=== PATIENT | female | born 1985 | race Two or more races ===

== ENCOUNTER → 2017-05-18 | Outpatient (CLI) | payer BC, MEDICAID ==
[2017-05-18 11:50] LABS: ABSOLUTE EOSINOPHILS # (AUTO) 0.2 10^3/uL (0.0-0.6); ABSOLUTE LYMPHOCYTES (AUTO) 1.6 10^3/uL (0.5-4.7); ABSOLUTE MONOCYTES (AUTO) 0.3 10^3/uL (0.1-1.4); ABSOLUTE NEUT (AUTO) 2.5 10^3/uL (1.7-8.2); BASOPHILS % (AUTO) 0.6 % (0-2); EOSINOPHILS % (AUTO) 3.6 % (0-6); HEMOGLOBIN 12.6 g/dL (12.0-15.5); HGB HCT DIFFERENCE -0.2; MEAN CORPUSCULAR HEMOGLOBIN 26.3 pg (27.0-33.4); MEAN CORPUSCULAR HGB CONC 33.2 g/dL (32.0-36.0); MEAN CORPUSCULAR VOLUME 79 fl (80-97); RED BLOOD COUNT 4.78 10^6/uL (3.72-5.28); RED CELL DISTRIBUTION WIDTH 13.9 % (11.5-14.0); SEGMENTED NEUTROPHILS % (AUTO) 53.8 % (42-78); WHITE BLOOD COUNT 4.7 10^3/uL (4.0-10.5)
[2017-05-18 12:18] LABS: ALANINE AMINOTRANSFERASE 29 U/L (9-52); ALBUMIN 4.6 g/dL (3.5-5.0); ALKALINE PHOSPHATASE 73 U/L (38-126); ANION GAP 14 (5-19); ASPARTATE AMINO TRANSFERASE 17 U/L (14-36); BILIRUBIN,DIRECT 0.3 mg/dL (0.0-0.4); BILIRUBIN,TOTAL 0.5 mg/dL (0.2-1.3); BLOOD UREA NITROGEN 12 mg/dL (7-20); CALCIUM 9.5 mg/dL (8.4-10.2); CARBON DIOXIDE 27 mmol/L (22-30); CHLORIDE 103 mmol/L (98-107); CREATININE RESULT 0.67 mg/dL (0.52-1.25); GLUCOSE 89 mg/dL (75-110); MAGNESIUM 1.7 mg/dL (1.6-2.3); POTASSIUM 4.3 mmol/L (3.6-5.0); SODIUM 143.6 mmol/L (137-145); TOTAL PROTEIN 7.1 g/dL (6.3-8.2)
[2017-05-18 12:47] LABS: FERRITIN 9.46 ng/mL (6.2-137.0)
== END ==
LOC: LAB 11:29
PROVIDERS: ATTEND Nurse Practitioner
DX: R00.2 Palpitations (principal); R53.83 Other fatigue; D50.8 Other iron deficiency anemias
CPT/HCPCS: 36415; 80053; 82607; 82728; 83540; 83550; 83735; 84443; 85025; 86376

== ENCOUNTER → 2018-03-04 | Outpatient (CLI) | payer BC ==
[2018-03-04 12:41] LABS: ABSOLUTE EOSINOPHILS # (AUTO) 0.1 10^3/uL (0.0-0.6); ABSOLUTE LYMPHOCYTES (AUTO) 1.4 10^3/uL (0.5-4.7); ABSOLUTE MONOCYTES (AUTO) 0.5 10^3/uL (0.1-1.4); ABSOLUTE NEUT (AUTO) 7.1 10^3/uL (1.7-8.2); BASOPHILS % (AUTO) 0.4 % (0-2); HEMATOCRIT 35.2 % (36.0-47.0); HEMOGLOBIN 11.7 g/dL (12.0-15.5); LYMPHOCYTES % (AUTO) 15.3 % (13-45); MEAN CORPUSCULAR HGB CONC 33.4 g/dL (32.0-36.0); MEAN CORPUSCULAR VOLUME 78 fl (80-97); MONOCYTES % (AUTO) 5.7 % (3-13); PLATELET COUNT 272 10^3/uL (150-450); RED BLOOD COUNT 4.52 10^6/uL (3.72-5.28); RED CELL DISTRIBUTION WIDTH 16.2 % (11.5-14.0); SEGMENTED NEUTROPHILS % (AUTO) 77.6 % (42-78); TOTAL CELLS COUNTED % (AUTO) 100 %; WHITE BLOOD COUNT 9.2 10^3/uL (4.0-10.5)
[2018-03-04 13:08] LABS: ALANINE AMINOTRANSFERASE 18 U/L (9-52); ALBUMIN 4.1 g/dL (3.5-5.0); ALKALINE PHOSPHATASE 49 U/L (38-126); ANION GAP 12 (5-19); ASPARTATE AMINO TRANSFERASE 16 U/L (14-36); BILIRUBIN,DIRECT 0.2 mg/dL (0.0-0.4); BILIRUBIN,TOTAL 0.3 mg/dL (0.2-1.3); BLOOD UREA NITROGEN 8 mg/dL (7-20); CALCIUM 9.5 mg/dL (8.4-10.2); CARBON DIOXIDE 24 mmol/L (22-30); CHLORIDE 102 mmol/L (98-107); GLUCOSE 93 mg/dL (75-110); POTASSIUM 4.1 mmol/L (3.6-5.0); SODIUM 137.8 mmol/L (137-145); URIC ACID 3.1 mg/dL (2.5-6.2)
[2018-03-04 14:04] LABS: RUBELLA INTERPRETATION POSITIVE
[2018-03-05 10:38] LABS: HEPATITIS C VIRUS AB <0.1 s/co ratio (0.0-0.9)
[2018-03-05 14:58] LABS: HEPATITS B SURFACE ANTIGEN Negative (Negative)
[2018-03-05 15:39] LABS: HGB A 97.4 % (96.4-98.8); HGB A2 2.6 % (1.8-3.2); HGB SOLUBILITY RESULT Negative (Negative)
== END ==
LOC: LAB 11:57
PROVIDERS: ATTEND Obstetrics & Gynecology
DX: O13.9 Gestational [pregnancy-induced] hypertension without significant proteinuria, unspecified trimester (principal); Z11.3 Encounter for screening for infections with a predominantly sexual mode of transmission; Z13.29 Encounter for screening for other suspected endocrine disorder
CPT/HCPCS: 36415; 80053; 83020; 83615; 84439; 84443; 84550; 85025; 86592; 86701; 86762; 86803; 86804; 86850; 86900; 86901; 87340

== ENCOUNTER → 2018-05-23 | Outpatient (CLI) | payer BC ==
[2018-05-23 22:06] LABS: ANION GAP 12 (5-19); ASPARTATE AMINO TRANSFERASE 16 U/L (14-36); BLOOD UREA NITROGEN 9 mg/dL (7-20); CALCIUM 9.9 mg/dL (8.4-10.2); CARBON DIOXIDE 26 mmol/L (22-30); CHLORIDE 101 mmol/L (98-107); GLUCOSE 90 mg/dL (75-110); POTASSIUM 4.5 mmol/L (3.6-5.0); SODIUM 139.3 mmol/L (137-145); URIC ACID 3.2 mg/dL (2.5-6.2)
[2018-05-24 21:39] LABS: 24 HOUR URINE PROTEIN RESULT 139 mg/day (42-225); URINE PROTEIN 9.8 mg/dL (<12)
[2018-05-27 12:18] LABS: URINE CREATININE 1.4 mg/dL (16-327)
[2018-05-27 12:22] LABS: CREATININE 0.56 mg/dL (0.52-1.25)
== END ==
LOC: LAB 09:35
PROVIDERS: ATTEND Obstetrics & Gynecology
DX: Z34.81 Encounter for supervision of other normal pregnancy, first trimester (principal)
CPT/HCPCS: 36415; 80048; 82570; 82575; 83036; 84156; 84450; 84550; 87086

== ENCOUNTER 2018-06-28 16:30 | Outpatient (CLI) | payer BC ==
[2018-06-28 17:15] LABS: AMORPHOUS SEDIMENT,URINE TRACE /HPF; APPEARANCE,URINE SLIGHTLY-CLOUDY; BILIRUBIN,URINE NEGATIVE (NEGATIVE); COLOR,URINE YELLOW; GLUCOSE, URINE NEGATIVE (NEGATIVE); KETONES,URINE NEGATIVE (NEGATIVE); LEUKOCYTE ESTERASE,URINE NEGATIVE (NEGATIVE); NITRITE,URINE NEGATIVE (NEGATIVE); PROTEIN,URINE NEGATIVE (NEGATIVE); URINE SPECIFIC GRAVITY 1.018; UROBILINOGEN,URINE NEGATIVE mg/dL (<2.0)
[2018-06-28 17:43] LABS: URINE AMPHETAMINES SCREEN NEGATIVE; URINE BARBITURATES SCREEN NEGATIVE; URINE BENZODIAZEPINES SCREEN NEGATIVE; URINE COCAINE SCREEN NEGATIVE; URINE MARIJUANA (THC) SCREEN NEGATIVE; URINE METHADONE SCREEN NEGATIVE; URINE PHENCYCLIDINE SCREEN NEGATIVE
== END 2018-06-28 17:15 | disposition home or self-care (01) ==
LOC: LC 16:30
PROVIDERS: ATTEND Obstetrics & Gynecology
PROC: 4A1HXCZ Monitoring of Products of Conception, Cardiac Rate, External Approach (ICD-10-PCS; principal; 2018-06-28)
DX: O16.2 Unspecified maternal hypertension, second trimester (principal); Z3A.24 24 weeks gestation of pregnancy
CPT/HCPCS: 80307; 81001

== ENCOUNTER → 2018-07-22 | Outpatient (CLI) | payer BC | LOC: LAB 20:57 | PROVIDERS: ATTEND Obstetrics & Gynecology | DX: O16.9 Unspecified maternal hypertension, unspecified trimester (principal) ==

== ENCOUNTER 2018-08-14 10:23 | Outpatient (CLI) | payer BC ==
[2018-08-14 11:14] LABS: APPEARANCE,URINE SLIGHTLY-CLOUDY; BILIRUBIN,URINE NEGATIVE (NEGATIVE); COLOR,URINE YELLOW; GLUCOSE, URINE NEGATIVE (NEGATIVE); KETONES,URINE NEGATIVE (NEGATIVE); LEUKOCYTE ESTERASE,URINE NEGATIVE (NEGATIVE); NITRITE,URINE NEGATIVE (NEGATIVE); PROTEIN,URINE NEGATIVE (NEGATIVE); URINE SPECIFIC GRAVITY 1.016; UROBILINOGEN,URINE NEGATIVE mg/dL (<2.0)
[2018-08-14 11:17] LABS: HEMATOCRIT 32.8 % (36.0-47.0); HEMOGLOBIN 10.9 g/dL (12.0-15.5); MEAN CORPUSCULAR HGB CONC 33.2 g/dL (32.0-36.0); MEAN CORPUSCULAR VOLUME 78 fl (80-97); PLATELET COUNT 201 10^3/uL (150-450); RED CELL DISTRIBUTION WIDTH 13.4 % (11.5-14.0)
[2018-08-14 11:30] LABS: ALANINE AMINOTRANSFERASE 24 U/L (9-52); ALBUMIN 3.4 g/dL (3.5-5.0); ALKALINE PHOSPHATASE 114 U/L (38-126); ANION GAP 6 (5-19); ASPARTATE AMINO TRANSFERASE 19 U/L (14-36); BILIRUBIN,DIRECT 0.2 mg/dL (0.0-0.4); BILIRUBIN,TOTAL 0.3 mg/dL (0.2-1.3); BLOOD UREA NITROGEN 10 mg/dL (7-20); CALCIUM 8.8 mg/dL (8.4-10.2); CARBON DIOXIDE 25 mmol/L (22-30); CHLORIDE 106 mmol/L (98-107); GLUCOSE 92 mg/dL (75-110); POTASSIUM 4.1 mmol/L (3.6-5.0); SODIUM 136.8 mmol/L (137-145); TOTAL PROTEIN 5.9 g/dL (6.3-8.2); URIC ACID 4.5 mg/dL (2.5-6.2)
[2018-08-14 11:32] LABS: UR PRO/CREAT RATIO RESULT 0.1 mg/mg (0.0-0.2); URINE CREATININE 96.7 mg/dL (16-327)
[2018-08-14 12:52] LABS: URINE AMPHETAMINES SCREEN NEGATIVE; URINE BARBITURATES SCREEN NEGATIVE; URINE BENZODIAZEPINES SCREEN NEGATIVE; URINE COCAINE SCREEN NEGATIVE; URINE MARIJUANA (THC) SCREEN NEGATIVE; URINE METHADONE SCREEN NEGATIVE; URINE PHENCYCLIDINE SCREEN NEGATIVE
== END 2018-08-14 12:00 | disposition home or self-care (01) ==
LOC: LC 10:23
PROVIDERS: ATTEND Obstetrics & Gynecology
PROC: 4A1HXCZ Monitoring of Products of Conception, Cardiac Rate, External Approach (ICD-10-PCS; principal; 2018-08-14)
DX: O10.913 Unspecified pre-existing hypertension complicating pregnancy, third trimester (principal); Z3A.31 31 weeks gestation of pregnancy
CPT/HCPCS: 36415; 80053; 80307; 81001; 82570; 83615; 84156; 84550; 85027

== ENCOUNTER 2018-08-21 12:14 | Observation (INO) | payer BC ==
[2018-08-21 12:48] LABS: APPEARANCE,URINE SLIGHTLY-CLOUDY; BILIRUBIN,URINE NEGATIVE (NEGATIVE); COLOR,URINE YELLOW; GLUCOSE, URINE NEGATIVE (NEGATIVE); KETONES,URINE NEGATIVE (NEGATIVE); LEUKOCYTE ESTERASE,URINE SMALL (NEGATIVE); NITRITE,URINE NEGATIVE (NEGATIVE); PROTEIN,URINE NEGATIVE (NEGATIVE); URINE SPECIFIC GRAVITY 1.017; UROBILINOGEN,URINE NEGATIVE mg/dL (<2.0)
[2018-08-21 13:04] LABS: URINE AMPHETAMINES SCREEN NEGATIVE; URINE BARBITURATES SCREEN NEGATIVE; URINE BENZODIAZEPINES SCREEN NEGATIVE; URINE COCAINE SCREEN NEGATIVE; URINE MARIJUANA (THC) SCREEN NEGATIVE; URINE METHADONE SCREEN NEGATIVE; URINE PHENCYCLIDINE SCREEN NEGATIVE
[2018-08-21 13:09] LABS: UR PRO/CREAT RATIO RESULT 0.1 mg/mg (0.0-0.2); URINE CREATININE 120.5 mg/dL (16-327); URINE PROTEIN 7.5 mg/dL (<12)
--- NOTE | 2018-08-21 13:22 | PDOC H&P ---
General Chief Complaint: 32yo at 32w4d with CHTN and severe range bps while at [facility]. Denies any s/s of super imposed pre-e except for swelling after working 12hr shifts that resolves with rest and headaches a couple of weeks ago but none now. Pt. had stopped taking procardia because she reports they were causing migraines but when blood pressures became severe, she agreed to start labetalol which she is now taking every 12hrs. Pt. was sent from [facility] office today for PIH labs, serial bps and in house 24hr urine to rule out super imposed pre-e. Reports +FM and no other concerns today. - Diagnosis (1) Is this a Current Diagnosis?: Yes (2) Chronic hypertension affecting Is this a Current Diagnosis?: Yes - Current Medications/Allergies Home Medications: Vit Calc,Iron,Folic [ Vitamins] 1 tab PO DAILY 12/31/15 Calcium Carbonate [Calcium] 1 tab PO QHS 08/14/18 Labetalol HCl 200 mg PO BID 08/21/18 Allergies/Adverse Reactions: No Known Allergies Allergy (Verified 08/14/18 10:31) Past Medical History Past Medical History: medical hx significant for CHTN,Leep in 2005 and three vaginal deliveries Endocrine Medical History: Reports: Other - Hx of GDM Past Surgical History Past Surgical History: Reports: Other - leep Family History Family History: Reviewed & Not Pertinent Parental Family History Reviewed: Yes Children Family History Reviewed: Yes Sibling(s) Family History Reviewed.: Yes Social History Smoking Status: Never Smoker Physical Exam Vital Signs: Intake & Output 08/20/18 08/21/18 08/22/18 06:59 06:59 06:59 Weight 83.2 kg General appearance: PRESENT: no acute distress, cooperative Respiratory exam: PRESENT: clear to auscultation angie. ABSENT: rales, rhonchi, wheezes Cardiovascular exam: PRESENT: RRR. ABSENT: diastolic murmur, rubs, systolic murmur Extremities exam: PRESENT: +1 edema - bilateral lower extremity none noticed on upper extremities. Neurological exam: PRESENT: oriented to person, oriented to place, oriented to time Psychiatric exam: PRESENT: normal mood Impression/Plan Impression: IUP @ 32w4d with CHTN Plan: will obtain PIH labs and serial bps and as long as bps are not severe, will transfer to to complete 24h urine. consider betamethasone if severe bps per Dr. Pelayo and discussed with Dr. Feliz who is agreeable with poc. Pt understands plan of care, asked questions and verbalized understanding.
--- NOTE | 2018-08-21 13:25 | Non Stress Test Report ---
Non Stress Test Datetime Report Generated by CPN: 08/21/2018 13:25 DEMOGRAPHIC EGA NST: 32.4 INDICATION Indication for Study: Chronic Hypertension; Ordered by Provider MONITORING Monitor Explained: Monitor Explained; Test Explained; Patient Verbalized Understanding Time on Monitor: 08/21/2018 12:26 Time off Monitor: 08/21/2018 13:21 NST Duration: 55 NST INTERVENTIONS NST Interventions: PO Hydration Physician Notified NST: C. Freed, CNM BABY A: [id number] BABY A Movement : Present Contraction Frequency : 0 FHR Baseline : 125 Accelerations : 15X15 Decelerations : None Variability : Moderate 6-25bpm NST Review: Meets Criteria for Reactive NST NST Review and Verified By : REMI Patel Results: Reactive NST REPORT Report Trigger: Send Report
[2018-08-21 13:29] LABS: ABSOLUTE EOSINOPHILS # (AUTO) 0.1 10^3/uL (0.0-0.6); ABSOLUTE LYMPHOCYTES (AUTO) 1.1 10^3/uL (0.5-4.7); ABSOLUTE MONOCYTES (AUTO) 0.6 10^3/uL (0.1-1.4); BASOPHILS % (AUTO) 0.5 % (0-2); EOSINOPHILS % (AUTO) 1.4 % (0-6); HEMATOCRIT 31.1 % (36.0-47.0); HEMOGLOBIN 10.3 g/dL (12.0-15.5); LYMPHOCYTES % (AUTO) 11.9 % (13-45); MEAN CORPUSCULAR HEMOGLOBIN 25.7 pg (27.0-33.4); MEAN CORPUSCULAR HGB CONC 33.1 g/dL (32.0-36.0); MEAN CORPUSCULAR VOLUME 78 fl (80-97); MONOCYTES % (AUTO) 7.1 % (3-13); PLATELET COUNT 200 10^3/uL (150-450); RED BLOOD COUNT 4.01 10^6/uL (3.72-5.28); SEGMENTED NEUTROPHILS % (AUTO) 79.1 % (42-78); TOTAL CELLS COUNTED % (AUTO) 100 %; WHITE BLOOD COUNT 8.9 10^3/uL (4.0-10.5)
[2018-08-21 13:48] LABS: ALANINE AMINOTRANSFERASE 21 U/L (9-52); ALBUMIN 3.3 g/dL (3.5-5.0); ALKALINE PHOSPHATASE 121 U/L (38-126); ANION GAP 6 (5-19); ASPARTATE AMINO TRANSFERASE 27 U/L (14-36); BILIRUBIN,DIRECT 0.2 mg/dL (0.0-0.4); BILIRUBIN,TOTAL 0.3 mg/dL (0.2-1.3); BLOOD UREA NITROGEN 10 mg/dL (7-20); CALCIUM 8.9 mg/dL (8.4-10.2); CARBON DIOXIDE 25 mmol/L (22-30); CHLORIDE 106 mmol/L (98-107); GLUCOSE 92 mg/dL (75-110); POTASSIUM 4.2 mmol/L (3.6-5.0); SODIUM 136.6 mmol/L (137-145); TOTAL PROTEIN 5.8 g/dL (6.3-8.2); URIC ACID 4.9 mg/dL (2.5-6.2)
[2018-08-21] MEDS: LABETALOL HCL 200 MG TABLET PO SCH ×2 (17:50→21:44)
[2018-08-22] MEDS: LABETALOL HCL 200 MG TABLET PO SCH (09:48)
[2018-08-22] MEDS ORDERED: PRENATAL VITAMIN W DHA CAPSULE PO SCH (10:00)
[2018-08-22 13:11] LABS: 24 HOUR URINE PROTEIN RESULT 348 mg/day (42-225); URINE PROTEIN 12.5 mg/dL (<12)
[2018-08-22 15:32] VITALS: BP 124/71
--- NOTE | 2018-08-22 16:37 | PDOC DISCHARGE SUMMARY ---
Final Diagnosis Discharge Date: 08/22/18 - Final Diagnosis (1) Chronic hypertension affecting Is this a current diagnosis for this admission?: Yes (2) Is this a current diagnosis for this admission?: Yes (3) Gestational hypertension Is this a current diagnosis for this admission?: Yes Discharge Data - Discharge Medication Home Medications: Vit Calc,Iron,Folic [ Vitamins] 1 tab PO DAILY 12/31/15 Calcium Carbonate [Calcium] 1 tab PO QHS 08/14/18 Labetalol HCl 200 mg PO BID 08/21/18 Gestational Age: 34.2 Reason(s) for Admission: PIH Procedures: NST, Ultrasound - Diagnosis Test Laboratory: Temp Pulse Resp BP Pulse Ox 98.2 F 71 16 124/71 99 08/22/18 15:31 08/22/18 15:31 08/22/18 15:31 08/22/18 15:31 08/22/18 15:31 08/21/18 08/21/18 12:18 13:07 RBC 4.01 Hgb 10.3 L Hct 31.1 L Urine Opiates Screen NEGATIVE - Discharge information/Instructions Discharge Activity: Activity As Tolerated Discharge Diet: As Tolerated, Regular Disposition: HOME, SELF-CARE Follow up with: [facility] in: 4, Days - rtc Sunday
--- NOTE | 2018-08-22 16:45 | PDOC PROGRESS REPORT ---
Subjective-OB Progress Note for:: 08/22/18 Subjective: pt ready to go home, Pos FM, no S&S of preeclampsia Physical Exam (OB) Vital Signs: Temp Pulse Resp BP Pulse Ox 98.2 F 71 16 124/71 99 08/22/18 15:31 08/22/18 15:31 08/22/18 15:31 08/22/18 15:31 08/22/18 15:31 Intake & Output 08/21/18 08/22/18 08/23/18 06:59 06:59 06:59 Intake Total 300 Balance 300 Weight 84.4 kg - Abdomen Hernia Present: No Objective-Diagnostic Laboratory: 08/21/18 13:07 08/21/18 13:07 08/22/18 12:30 Ur 24 Hour Volume 2780 Ur Total Protein 24 Hr 348 H Assessment and Plan(PN) - Assessment and Plan (1) Chronic hypertension affecting Is this a current diagnosis for this admission?: Yes (2) Qualifiers: Weeks of gestation: 34 weeks Qualified Code(s): Z3A.34 - 34 weeks gestation of Is this a current diagnosis for this admission?: Yes (3) Gestational hypertension Qualifiers: Trimester: third trimester Qualified Code(s): O13.3 - Gestational [-induced] hypertension without significant proteinuria, third trimester Is this a current diagnosis for this admission?: Yes - Time Spent with Patient Time with patient: Less than 15 minutes Medications reviewed and adjusted accordingly: Yes - Disposition Anticipated Discharge: Home - discharged undelivered, 34.3, pos fm, reviewed S&S to report, will see patient on Sunday, vs stable, 24 hour protein 348
== END 2018-08-22 17:24 | disposition home or self-care (01) ==
LOC: LC 12:14 → LR 12:36 → 2N 17:40
PROVIDERS: ADMIT Obstetrics & Gynecology; ATTEND Obstetrics & Gynecology
PROC: 4A0HXCZ Measurement of Products of Conception, Cardiac Rate, External Approach (ICD-10-PCS; principal; 2018-08-21)
PROC: 4A0HXCZ Measurement of Products of Conception, Cardiac Rate, External Approach (ICD-10-PCS; 2018-08-22)
DX: O13.3 Gestational [pregnancy-induced] hypertension without significant proteinuria, third trimester (principal); Z86.32 Personal history of gestational diabetes; Z3A.34 34 weeks gestation of pregnancy
CPT/HCPCS: 59025 ×2; 36415; 83615; 84156 ×2; 84550; 82570; 85025; 80053; 81001; 80307; J3490

== ENCOUNTER 2018-08-29 11:51 | Outpatient (CLI) | payer BC ==
[2018-08-29 12:48] LABS: HEMATOCRIT 33.4 % (36.0-47.0); HEMOGLOBIN 11.1 g/dL (12.0-15.5); MEAN CORPUSCULAR HEMOGLOBIN 25.5 pg (27.0-33.4); MEAN CORPUSCULAR HGB CONC 33.3 g/dL (32.0-36.0); MEAN CORPUSCULAR VOLUME 77 fl (80-97); PLATELET COUNT 200 10^3/uL (150-450); RED BLOOD COUNT 4.36 10^6/uL (3.72-5.28); RED CELL DISTRIBUTION WIDTH 14.4 % (11.5-14.0); WHITE BLOOD COUNT 10.5 10^3/uL (4.0-10.5)
[2018-08-29 12:58] LABS: APPEARANCE,URINE SLIGHTLY-CLOUDY; BILIRUBIN,URINE NEGATIVE (NEGATIVE); COLOR,URINE STRAW; GLUCOSE, URINE NEGATIVE (NEGATIVE); KETONES,URINE NEGATIVE (NEGATIVE); LEUKOCYTE ESTERASE,URINE MODERATE (NEGATIVE); NITRITE,URINE NEGATIVE (NEGATIVE); PROTEIN,URINE NEGATIVE (NEGATIVE); URINE SPECIFIC GRAVITY 1.004; UROBILINOGEN,URINE NEGATIVE mg/dL (<2.0)
[2018-08-29 13:04] LABS: ALANINE AMINOTRANSFERASE 21 U/L (9-52); ALBUMIN 3.7 g/dL (3.5-5.0); ALKALINE PHOSPHATASE 139 U/L (38-126); ANION GAP 7 (5-19); ASPARTATE AMINO TRANSFERASE 23 U/L (14-36); BILIRUBIN,DIRECT 0.2 mg/dL (0.0-0.4); BILIRUBIN,TOTAL 0.3 mg/dL (0.2-1.3); BLOOD UREA NITROGEN 12 mg/dL (7-20); CALCIUM 9.2 mg/dL (8.4-10.2); CARBON DIOXIDE 22 mmol/L (22-30); CHLORIDE 107 mmol/L (98-107); GLUCOSE 77 mg/dL (75-110); POTASSIUM 4.3 mmol/L (3.6-5.0); TOTAL PROTEIN 6.4 g/dL (6.3-8.2); URIC ACID 5.8 mg/dL (2.5-6.2)
[2018-08-29 13:09] LABS: URINE AMPHETAMINES SCREEN NEGATIVE; URINE BARBITURATES SCREEN NEGATIVE; URINE BENZODIAZEPINES SCREEN NEGATIVE; URINE COCAINE SCREEN NEGATIVE; URINE MARIJUANA (THC) SCREEN NEGATIVE; URINE METHADONE SCREEN NEGATIVE; URINE PHENCYCLIDINE SCREEN NEGATIVE
[2018-08-29 13:11] LABS: UR PRO/CREAT RATIO RESULT 0.7 mg/mg (0.0-0.2); URINE CREATININE 25.6 mg/dL (16-327); URINE PROTEIN 16.8 mg/dL (<12)
[2018-08-29] MEDS ORDERED: NIFEDIPINE 10 MG CAPSULE ONE (13:27)
[2018-08-29] MEDS ORDERED: NIFEDIPINE 10 MG CAPSULE PO ONE (13:28)
--- NOTE | 2018-08-29 13:40 | L&D Progress Notes ---
PROGRESS NOTES Datetime Report Generated by CPN: 08/29/2018 13:40 PROGRESS NOTE Impression Other: Gestational HTN Procedures- Other: monitoring Vital Signs : Reviewed; Within Normal Limits Comment: Pt here today c/o elevated BP. She is currently taking Labetalol 200 mg BID and her BPs are still extremely elevated. She is asymptomatic and her PIH workup is negative. She is no longer working and is on modified bedrest. She was given Procardia 10 mg to bridge her until she takes her Labetalol tonight. I increased her dose to 300 mg BID. She will call me with her BP log on Sunday. She will also see MFM on Sunday. FETUS A FHR - Baseline: 120s Monitoring: External US Accelerations: 15X15 Decelerations: None FHR Category: Category I : 33.5 SIGNATURE SIGNATURE: [id number] SIGNATURE: [id number] Signature: with User ID: [email or web address]
--- NOTE | 2018-08-29 14:03 | Non Stress Test Report ---
Non Stress Test Datetime Report Generated by CPN: 08/29/2018 14:02 DEMOGRAPHIC EGA NST: 33.5 INDICATION Indication for Study: Chronic Hypertension; Ordered by Provider MONITORING Monitor Explained: Monitor Explained; Test Explained; Patient Verbalized Understanding Time on Monitor: 08/29/2018 12:08 Time off Monitor: 08/29/2018 13:31 NST Duration: 83 NST INTERVENTIONS NST Interventions: PO Hydration; Reposition Patient Physician Notified NST: NDipesh Torres, CNM BABY A: [id number] BABY A Movement : Present Contraction Frequency : 0 FHR Baseline : 130 Accelerations : 15X15 Decelerations : None Variability : Moderate 6-25bpm NST Review: Meets Criteria for Reactive NST NST Review and Verified By : Charisma Moyer RN NST Results: Reactive NST REPORT Report Trigger: Send Report
== END 2018-08-29 13:55 | disposition home or self-care (01) ==
LOC: LC 11:51
PROVIDERS: ATTEND Obstetrics & Gynecology
PROC: 4A1HXCZ Monitoring of Products of Conception, Cardiac Rate, External Approach (ICD-10-PCS; principal; 2018-08-29)
DX: O13.3 Gestational [pregnancy-induced] hypertension without significant proteinuria, third trimester (principal); Z3A.33 33 weeks gestation of pregnancy
CPT/HCPCS: 59025; 36415; 84156; 84550; 82570; 85027; 86592; 80053; 81001; 86701; 80307; J3490

== ENCOUNTER → 2019-07-26 | Outpatient (CLI) | payer BC ==
[2019-07-26 23:34] LABS: ABSOLUTE EOSINOPHILS # (AUTO) 0.2 10^3/uL (0.0-0.6); ABSOLUTE LYMPHOCYTES (AUTO) 1.9 10^3/uL (0.5-4.7); ABSOLUTE MONOCYTES (AUTO) 0.5 10^3/uL (0.1-1.4); ABSOLUTE NEUT (AUTO) 4.6 10^3/uL (1.7-8.2); BASOPHILS % (AUTO) 0.5 % (0-2); EOSINOPHILS % (AUTO) 2.4 % (0-6); HEMATOCRIT 37.9 % (36.0-47.0); HEMOGLOBIN 12.5 g/dL (12.0-15.5); LYMPHOCYTES % (AUTO) 26.6 % (13-45); MEAN CORPUSCULAR HEMOGLOBIN 26.2 pg (27.0-33.4); MEAN CORPUSCULAR VOLUME 80 fl (80-97); PLATELET COUNT 307 10^3/uL (150-450); RED BLOOD COUNT 4.77 10^6/uL (3.72-5.28); RED CELL DISTRIBUTION WIDTH 14.9 % (11.5-14.0); SEGMENTED NEUTROPHILS % (AUTO) 63.5 % (42-78); TOTAL CELLS COUNTED % (AUTO) 100 %; WHITE BLOOD COUNT 7.3 10^3/uL (4.0-10.5)
[2019-07-26 23:51] LABS: ALKALINE PHOSPHATASE 91 U/L (38-126); ANION GAP 12 (5-19); ASPARTATE AMINO TRANSFERASE 22 U/L (14-36); BILIRUBIN,DIRECT 0.2 mg/dL (0.0-0.4); BILIRUBIN,TOTAL 0.3 mg/dL (0.2-1.3); BLOOD UREA NITROGEN 24 mg/dL (7-20); CALCIUM 10.2 mg/dL (8.4-10.2); CARBON DIOXIDE 29 mmol/L (22-30); CHLORIDE 101 mmol/L (98-107); CHOLESTEROL 218.59 mg/dL (0-200); GLUCOSE 97 mg/dL (75-110); POTASSIUM 4.4 mmol/L (3.6-5.0); TOTAL PROTEIN 8.2 g/dL (6.3-8.2); TRIGLYCERIDES 193 mg/dL (<150)
[2019-07-27 00:02] LABS: DIRECT LDL 132 mg/dL (<100)
[2019-07-27 00:03] LABS: VLDL CHOLESTEROL 38.6 mg/dL (10-31)
[2019-07-27 00:28] LABS: FREE T4 (FREE THYROXINE) 0.93 ng/dL (0.78-2.19)
[2019-07-27 00:42] LABS: THYROID STIMULATING HORMONE 1.61 uIU/mL (0.47-4.68)
== END ==
LOC: LAB 22:45
PROVIDERS: ATTEND Physician Assistant
DX: I15.9 Secondary hypertension, unspecified (principal); R53.83 Other fatigue; R63.5 Abnormal weight gain; Z13.220 Encounter for screening for lipoid disorders
CPT/HCPCS: 36415; 80053; 80061; 84439; 84443; 85025

== ENCOUNTER 2019-12-16 17:48 | Emergency (ER) | payer BC ==
--- NOTE | 2019-12-16 18:10 | ER Document Report ---
ED Medical Screen (RME) - General Chief Complaint: Vag Bleeding, +preg <12wks Stated Complaint: VAGINAL BLEEDING Time Seen by Provider: 12/16/19 18:03 Primary Care Provider: UMER PICKETT MD [Primary Care Provider] - Follow up as needed Mode of Arrival: Ambulatory Information source: Patient Notes: HPI; 33-year-old six 6-week 6-day female 5 para 4 presents emergency room with intermittent spotting for the past few weeks. States that last night her blood pressure at work was 160/105. History of preeclampsia. States she only has a spotting after working several hours. Denies pain. Referred to the ER by her [employer] as they were unable to see her today. PE: Alert and oriented x3. No acute distress noted. Lungs: Clear to auscultation without rales rhonchi or wheezes. Heart regular rate and rhythm without murmurs rubs or gallops. I have greeted and performed a rapid initial assessment of this patient. A comprehensive ED assessment and evaluation of the patient, analysis of test results and completion of the medical decision making process will be conducted by additional ED providers. I have specifically instructed the patient or family members with the patient to immediately return to any nursing staff should anything change in the patient's condition or with their chief complaint. HPI; TRAVEL OUTSIDE OF THE [place] IN LAST 30 DAYS: No - Related Data Allergies/Adverse Reactions: No Known Allergies Allergy (Verified 08/14/18 10:31) Past Medical History - Past Medical History Cardiac Medical History: Reports: Hx Hypertension Endocrine Medical History: Reports: Hx Diabetes Mellitus Type 2 - gestational Past Surgical History: Reports: Hx Gynecologic Surgery - LEEP procedure, Other - leep Physical Exam - Vital signs Vitals: Temp Pulse Resp BP Pulse Ox 98.7 F 85 18 155/95 H 100 12/16/19 17:54 12/16/19 17:54 12/16/19 17:54 12/16/19 17:54 12/16/19 17:54 Course - Vital Signs Vital signs: Temp Pulse Resp BP Pulse Ox 98.7 F 85 18 155/95 H 100 12/16/19 18:02 12/16/19 17:54 12/16/19 17:54 12/16/19 17:54 12/16/19 17:54 Doctor's Discharge - Discharge Referrals: UMER PICKETT MD [Primary Care Provider] - Follow up as needed
[2019-12-16 18:33] LABS: APPEARANCE,URINE SLIGHTLY-CLOUDY; BILIRUBIN,URINE NEGATIVE (NEGATIVE); COLOR,URINE YELLOW; GLUCOSE, URINE NEGATIVE (NEGATIVE); KETONES,URINE NEGATIVE (NEGATIVE); LEUKOCYTE ESTERASE,URINE MODERATE (NEGATIVE); NITRITE,URINE NEGATIVE (NEGATIVE); PROTEIN,URINE NEGATIVE (NEGATIVE); URINE SPECIFIC GRAVITY 1.019; UROBILINOGEN,URINE NEGATIVE mg/dL (<2.0)
[2019-12-16 18:36] LABS: ABSOLUTE EOSINOPHILS # (AUTO) 0.1 10^3/uL (0.0-0.6); ABSOLUTE LYMPHOCYTES (AUTO) 1.6 10^3/uL (0.5-4.7); ABSOLUTE MONOCYTES (AUTO) 0.5 10^3/uL (0.1-1.4); ABSOLUTE NEUT (AUTO) 4.7 10^3/uL (1.7-8.2); BASOPHILS % (AUTO) 0.5 % (0-2); EOSINOPHILS % (AUTO) 1.6 % (0-6); HEMATOCRIT 36.6 % (36.0-47.0); HEMOGLOBIN 12.1 g/dL (12.0-15.5); LYMPHOCYTES % (AUTO) 23.2 % (13-45); MEAN CORPUSCULAR HEMOGLOBIN 26.1 pg (27.0-33.4); MEAN CORPUSCULAR HGB CONC 33.2 g/dL (32.0-36.0); MEAN CORPUSCULAR VOLUME 79 fl (80-97); MONOCYTES % (AUTO) 6.9 % (3-13); PLATELET COUNT 279 10^3/uL (150-450); RED BLOOD COUNT 4.66 10^6/uL (3.72-5.28); RED CELL DISTRIBUTION WIDTH 15.4 % (11.5-14.0); SEGMENTED NEUTROPHILS % (AUTO) 67.8 % (42-78); TOTAL CELLS COUNTED % (AUTO) 100 %
[2019-12-16 18:48] LABS: ALBUMIN 4.5 g/dL (3.5-5.0); ALKALINE PHOSPHATASE 74 U/L (38-126); ANION GAP 8 (5-19); ASPARTATE AMINO TRANSFERASE 20 U/L (14-36); BILIRUBIN,TOTAL 0.3 mg/dL (0.2-1.3); BLOOD UREA NITROGEN 12 mg/dL (7-20); CALCIUM 9.8 mg/dL (8.4-10.2); CARBON DIOXIDE 25 mmol/L (22-30); CHLORIDE 102 mmol/L (98-107); GLUCOSE 108 mg/dL (75-110); TOTAL PROTEIN 7.3 g/dL (6.3-8.2)
--- NOTE | 2019-12-16 19:23 | RADIOLOGY REPORT (SQ) ---
EXAM DESCRIPTION: U/S OB TRANSVAG W/DOPPLER IMAGES COMPLETED DATE/TIME: 12/16/2019 7:08 pm REASON FOR STUDY: bleeding COMPARISON: None. TECHNIQUE: Transvaginal static and realtime grayscale images acquired of the pelvis. Additional armando cted spectral and color Doppler images recorded. All images stored on PACs. bHCG: Not available. CLINICAL DATES: MOLLY: 08/04/2020. EGA: 6 weeks 6 days LIMITATIONS: None. FINDINGS: FETUS: No Living intrauterine . ULTRASOUND EGA: 7 weeks 1 day ULTRASOUND MOLLY: 08/02/2020 GESTATIONAL SAC: 2.20 cm CRL: Not visualized. SUBCHORIONIC BLEED: A 2.8 x 1.3 x 1.7 cm subchorionic bleed. SIZE OF BLEED: See above description. UTERUS: The uterus measures 10.7 x 5.2 x 7.7 cm. A fundal uterine fibroid measures 2.0 x 1.8 x 2.1 cm. CERVICAL LENGTH: 3.1 cm. Closed. RIGHT ADNEXA: The right ovary measures 2.1 x 2.3 x 1.8 cm. Normal ovary with normal vascular flow. No adnexal free fluid. No adnexal masses. LEFT ADNEXA: The left ovary measures 3.6 x 2.0 x 2.4 cm a 2.5 x 1.3 x 1.4 cm complex cyst may repres ent a corpus luteal cyst. Trace of free fluid in the left adnexal. FREE FLUID: See above. OTHER: Mild dilatation of the vessels in the adnexal bilaterally. IMPRESSION: 1. No living intrauterine . Gestational sac is identified which correlates to EGA: 7 weeks 1 day. Clinical correlation, correlation with lab values and follow-up examination. 2. Subchorionic bleed as above. 3. Complex left ovarian cyst may represent a corpus luteum cyst. 4. Uterine fibroid. 5. Additional findings as above. TECHNICAL DOCUMENTATION: JOB ID: [id number] 2010 [employer]- All Rights Reserved rev-11/30 Reading location - IP/workstation name: [facility]
--- NOTE | 2019-12-16 21:29 | ER Document Report ---
ED General - General Chief Complaint: Vag Bleeding, +preg <12wks Stated Complaint: VAGINAL BLEEDING Time Seen by Provider: 12/16/19 18:03 Primary Care Provider: UMER PICKETT MD [ACTIVE STAFF] - Follow up as needed Mode of Arrival: Ambulatory TRAVEL OUTSIDE OF THE [place] IN LAST 30 DAYS: No - HPI Notes: Patient is a 33-year-old female, G6, P5 at approximately 7 weeks gestation, who presents to the emergency department for evaluation of intermittent vaginal spotting as well as elevated blood pressure. Patient was diagnosed with high blood pressure with her last , and continued on labetalol and then Norvasc. Since starting her this time, she was discontinued on the Norvasc. She continues labetalol 200 mg daily and states that her blood pressures have been high. She is been seeing numbers in the 150s and 160s, diastolics in the 90s. She states she is also had intermittent spotting. It has been dark red. She states this seems to have gotten heavier. She denies any pain at this time. - Related Data Allergies/Adverse Reactions: No Known Allergies Allergy (Verified 08/14/18 10:31) Home Medications: Labetalol, vitamins Past Medical History - General Information source: Patient - Social History Smoking Status: Never Smoker Family History: Reviewed & Not Pertinent Patient has homicidal ideation: No - Past Medical History Cardiac Medical History: Reports: Hx Hypertension Endocrine Medical History: Reports: Hx Diabetes Mellitus Type 2 - gestational Past Surgical History: Reports: Hx Gynecologic Surgery - LEEP procedure, Other - leep Review of Systems - Review of Systems Constitutional: See HPI Female Genitourinary: See HPI -: Yes All other systems reviewed and negative Physical Exam - Vital signs Vitals: Temp Pulse Resp BP Pulse Ox 98.7 F 85 18 155/95 H 100 12/16/19 17:54 12/16/19 17:54 12/16/19 17:54 12/16/19 17:54 12/16/19 17:54 - Notes Notes: Vital signs reviewed, please refer to chart. Head is normocephalic, atraumatic. Neck is supple without meningismus. Heart is regular rate and rhythm. Lungs are clear to auscultation bilaterally. Abdomen is soft, nontender, normoactive bowel sounds throughout. Extremities without cyanosis, clubbing. Posterior calves are nontender. Peripheral pulses are equal. Skin is warm and dry. Grady villalta is awake, alert, neurological exam is nonfocal. Course - Re-evaluation Re-evalutation: 12/16/19 21:24 Patient is a 33-year-old female who presents to the emergency department for evaluation. Her blood type is noted to be a positive, this was verified with the patient as well as in the blood bank. Her laboratory investigations revealed a quant of over 36,000, but an empty gestational sac, measuring about 7 weeks. I am concerned about the possibility of a missed . I spoke with Dr. Stevenson, on-call [employer]. She states that there is plenty of room to go up on the labetalol in regards to her blood pressure. She stressed the importance of close follow-up with OB, either with her with the patient's OB in [place]. This was expressed to the patient. She is given a copy of her ultrasound. I will give her a lab slip to have her labs redone in 48 hours. She is also to increase her labetalol to 200 mg twice a day, return to the emergency department with worsening or new concerning symptoms of any sort. - Vital Signs Vital signs: Temp Pulse Resp BP Pulse Ox 98.7 F 85 18 135/93 H 99 12/16/19 18:02 12/16/19 17:54 12/16/19 17:54 12/16/19 21:01 12/16/19 21:01 - Laboratory Result Diagrams: 12/16/19 18:14 12/16/19 18:14 Laboratory results interpreted by me: 12/16/19 12/16/19 12/16/19 18:14 18:14 18:14 MCV 79 L MCH 26.1 L RDW 15.4 H Sodium 135.3 L Beta HCG, Quant 62296.00 H Urine Blood SMALL H Ur Leukocyte Esterase MODERATE H - Diagnostic Test Radiology reviewed: Reports reviewed Radiology results interpreted by me: 12/16/19 21:25 Transvaginal US 12/16/19 18:07 IMPRESSION: 1. No living intrauterine . Gestational sac is identified which correlates to EGA: 7 weeks 1 day. Clinical correlation, correlation with lab values and follow-up examination. 2. Subchorionic bleed as above. 3. Complex left ovarian cyst may represent a corpus luteum cyst. 4. Uterine fibroid. 5. Additional findings as above. Discharge - Discharge Clinical Impression: Hypertension, First trimester bleeding, Subchorionic hemorrhage in first trimester Condition: Stable Disposition: HOME, SELF-CARE Instructions: Bleeding During Early ([facility]) Additional Instructions: Your blood pressure was elevated here today. You can increase your labetalol to 200 mg twice a day. Your ultrasound today revealed a subchorionic hemorrhage. It showed a gestational sac, but no clear fetus is identified. It is very important that you get repeat blood work and ultrasound in 48 hours. Your quantitative beta-hCG was 35,931 today. You can follow-up with your OB in [place], or our on-call [employer], Dr. Stevenson. Return to the emergency department with worsening or new concerning symptoms of any sort. Forms: Follow-Up Laboratory Testing Referrals: UMER PICKETT MD [ACTIVE STAFF] - Follow up as needed
[2019-12-16 21:43] VITALS: BP 151/102
== END 2019-12-16 21:42 | disposition home or self-care (01) ==
LOC: ER 17:48
DX: O20.8 Other hemorrhage in early pregnancy (principal); O10.911 Unspecified pre-existing hypertension complicating pregnancy, first trimester; O34.81 Maternal care for other abnormalities of pelvic organs, first trimester; N83.202 Unspecified ovarian cyst, left side; O34.11 Maternal care for benign tumor of corpus uteri, first trimester; D25.9 Leiomyoma of uterus, unspecified; Z79.899 Other long term (current) drug therapy
CPT/HCPCS: 36415; 76817; 80053; 81001; 84702; 85025; 93976; 99284

== ENCOUNTER → 2019-12-18 | Outpatient (CLI) | payer BC | LOC: LAB 16:19 | PROVIDERS: ATTEND Nurse Practitioner | DX: O20.9 Hemorrhage in early pregnancy, unspecified (principal) | CPT/HCPCS: 36415; 84702 ==

== ENCOUNTER → 2020-07-10 | Outpatient (CLI) | payer BC ==
[~2020-07-10] MED LIST: COVID-19 VACCINE (PFIZER)/PF 30 MCG/0.3 ML VIAL IM ONE; EPINEPHRINE INJ/PF 1 MG/1 ML AMPULE IM PRN
== END ==
LOC: EMPHEALTH 08:03
PROVIDERS: ATTEND Internal Medicine
DX: Z23 Encounter for immunization (principal)
CPT/HCPCS: 91300

== ENCOUNTER → 2020-07-31 | Outpatient (CLI) | payer BC | LOC: EMPHEALTH 07:31 | PROVIDERS: ATTEND Internal Medicine | DX: Z23 Encounter for immunization (principal) | CPT/HCPCS: 91300 ==